=== PATIENT | female | born 1990 ===

== ENCOUNTER 2022-08-04 14:31 | Outpatient (CLI) | payer OTHER | END 2022-08-04 16:21 | disposition home or self-care (01) | LOC: PRENATAL 14:31 | PROVIDERS: ATTEND Obstetrics & Gynecology Maternal & Fetal Medicine | DX: O35.9XX0 Maternal care for (suspected) fetal abnormality and damage, unspecified, not applicable or unspecified (principal); O35.3XX0 Maternal care for (suspected) damage to fetus from viral disease in mother, not applicable or unspecified; Z14.8 Genetic carrier of other disease; O26.879 Cervical shortening, unspecified trimester; Z88.0 Allergy status to penicillin; Z3A.24 24 weeks gestation of pregnancy ==